=== PATIENT | female | born 1970 | race Caucasian/White ===

== ENCOUNTER 2021-06-24 13:00 | Inpatient (IN) | payer MEDICARE, OTHER ==
[~2021-06-24] VITALS: Ht 160 cm; Wt 72.6 kg
--- NOTE | 2021-06-24 13:20 | NUR ---
Patient brought in by RA 93 for abdominal pain, patient noted screaming and grasping left side of abdomen
[2021-06-24] MEDS ORDERED: L.AC1CAP6 PO (13:26)
[2021-06-24] MEDS ORDERED: BIOT5000 PO (13:26)
[2021-06-24] MEDS ORDERED: MULT-1200 PO (13:26)
[2021-06-24] MEDS ORDERED: CHOL500062 PO (13:26)
[2021-06-24] MEDS ORDERED: LACO200T2 PO (13:26)
[2021-06-24] MEDS ORDERED: CYAN100T44 PO (13:26)
[2021-06-24] MEDS ORDERED: ACET-73 PO (13:26)
[2021-06-24] MEDS ORDERED: [UNRECOGNIZED DRUG - CODE] PO (13:26)
[2021-06-24] MEDS ORDERED: CALC-1194 PO (13:26)
[2021-06-24] MEDS ORDERED: LORA10TA7 PO (13:26)
[2021-06-24] MEDS ORDERED: LEVO75TA7 PO (13:26)
[2021-06-24] MEDS ORDERED: RISP0.5T65 PO (13:26)
[2021-06-24] MEDS ORDERED: BRIV50TA PO (13:26)
[2021-06-24] MEDS ORDERED: BRIV100T PO (13:26)
[2021-06-24] MEDS ORDERED: IV NORMAL SALINE 1000 ML BAG IV ONE (13:30)
[2021-06-24] MEDS ORDERED: ONDANSETRON 4 MG/2 ML VIAL IV ONE (13:30)
[2021-06-24] MEDS ORDERED: MORPHINE SULFATE 2 MG/1 ML DISP.SYRIN IV ONE (13:30)
[2021-06-24] MEDS ORDERED: MORPHINE SULFATE 4 MG/1 ML DISP.SYRIN ONE (13:32)
[2021-06-24] MEDS ORDERED: ONDANSETRON 4 MG/2 ML VIAL ONE (13:32)
[2021-06-24 13:34] LABS: *BILIRUBIN,URIN NEGATIVE (NEGATIVE); *BLOOD, URINE 1+ (NEGATIVE); *CLARITY,URINE SLIGHTLY CLOUDY (CLEAR); *COLOR,URINE LIGHT YELLOW (YELLOW); *KETONES,URINE NEGATIVE (NEGATIVE); *UROBILINOGEN,URINE 0.2 E.U./dl (NORMAL); LEUKOCYTE ESTERASE ,URINE 3+ (NEGATIVE); NITRITE, URINE POSITIVE (NEGATIVE); UGLUCOSE NEGATIVE (NEGATIVE)
[2021-06-24 13:34] LABS: HEMATOCRIT 38.3 % (31.2-41.9); MEAN CORPUSCULAR HEMOGLOBIN 29.9 uug (24.7-32.8); MEAN CORPUSCULAR VOLUME 90.1 fL (75.5-95.3); PLATELET COUNT (AUTO) 367 K/uL (179-408)
[2021-06-24 13:39] LABS: CARBON DIOXIDE 26 mmol/L (21-32); CHLORIDE 101 mmol/L (98-107); GLUCOSE 116 mg/dL (74-106); POTASSIUM 4.3 mmol/L (3.5-5.1); UREA NITROGEN, BLOOD 10 mg/dL (7-18)
[2021-06-24] MEDS ORDERED: HYDROMORPHONE 1 MG/1 ML DISP.SYRIN ONE (13:40)
[2021-06-24 13:45] LABS: ALANINE AMINOTRANSFERASE 29 U/L (14-59); ALKALINE PHOSPHATASE 145 U/L (50-136); ASPARTATE AMINOTRANSFERASE 21 U/L (15-37); BILIRUBIN,DIRECT 0.1 mg/dL (0.0-0.2); BILIRUBIN,TOTAL 0.4 mg/dL (0.2-1.0); LIPASE 72 U/L (73-393); TOTAL PROTEIN, SERUM 8.6 g/dL (6.4-8.2)
[2021-06-24] MEDS ORDERED: HYDROMORPHONE 1 MG/1 ML DISP.SYRIN IV ONE (13:45)
--- NOTE | 2021-06-24 13:51 | NUR ---
Patient is in CT scan@this time. Patient will go to room 4A from room 2A after CT scan per MD & cupola charger insulation Sepi.
--- NOTE | 2021-06-24 14:09 | NUR ---
1st contact with patient: asleep, arousable by voice by opening her eyes, denies pains@the moment. promotional representative shows sinus tachycardia, with tachypnea, respratory rate=24-28/min, spO2=80's room air. Oxygen supplement started to titrate spO2>92%. IV fluids started as well.
--- NOTE | 2021-06-24 14:30 | NUR ---
MD was notified of current vital signs. Head of sofi was elevated to assist with better respiration. Comfort and safety measures initiated and she is being monitored closely.
[2021-06-24 17:41] LABS: BACTERIA,URINE MANY /HPF (NONE SEEN); SQUAMOUS EPITHELIAL CELL,UR FEW /HPF (NONE SEEN); WBC,URINE 20-50 /HPF (0-3)
[2021-06-24] MEDS ORDERED: ONDANSETRON 4 MG/2 ML VIAL IV PRN (17:45)
[2021-06-24] MEDS ORDERED: Z GUARD REMEDY PASTE 57 GM TUBE TOP PRN (17:45)
[2021-06-24] MEDS ORDERED: CEFTRIAXONE 1 G in IV DEXTROSE 5% 50 ML IV SCH (17:45)
[2021-06-24] MEDS ORDERED: MAGNESIUM HYDROXIDE 30 ML LIQUID UDC PO PRN (17:45)
[2021-06-24] MEDS ORDERED: ACETAMINOPHEN ES 500 MG TABLET PO PRN (17:45)
[2021-06-24] MEDS ORDERED: CEFTRIAXONE /D5W 50ML IVPB **ER PYXIS IV ONE (17:59)
--- NOTE | 2021-06-24 18:26 | NUR ---
Blanca-anal care and new bed sheets & gown on. Patient was assisted to bedpan.
[2021-06-24] MEDS ORDERED: CEFTRIAXONE 1 G in IV DEXTROSE 5% 50 ML IV ONE (19:00)
--- NOTE | 2021-06-24 19:01 | NUR ---
Darrin kay in [facility] - 06/24/21 at 1902 by HERNAN Hands off report given to leigh ann Mckeon for accepting med-surg nurse & available bed
--- NOTE | 2021-06-24 19:02 | NUR ---
Hands off report to FERMIN Hair. Patient is waiting for accepting med-surgical nurse and available bed.
--- NOTE | 2021-06-24 19:17 | NUR ---
*Rocephin IV given @3635
[2021-06-24] MEDS ORDERED: BRIVARACETAM 100 MG PO SCH (21:00)
[2021-06-24] MEDS ORDERED: ACETAMINOPHEN ES 500 MG TABLET ONE (22:06)
[2021-06-24] MEDS ORDERED: KETOROLAC TROMETHAMINE 15 MG INJ IVP ONE (22:15)
[2021-06-24] MEDS ORDERED: KETOROLAC TROMETHAMINE 15 MG INJ ONE (22:21)
--- NOTE | 2021-06-25 02:03 | NUR ---
Pt. admitted to m/s , under care of maría Virk N.P. Belongs List completed. Report given to FERMIN Arreola
--- NOTE | 2021-06-25 03:20 | NUR ---
RECEIVED PT AWAKE, ALERT AND ORIENTEDX2. PT IN NO ACUTE DISTRESS. UNDER EDUARDA LINDER MANUFACTURING CHIEF ENGINEER. DX: UTI. BELONGING LIST DONE. ALF ASSESSMENT DONE. SAFETY AND COMFORT PROVIDED.ADMISSION PROCESS AND CARE PLAN INITIATED. WILL CONTINUE TO MONITOR.
[2021-06-25] MEDS ORDERED: CEFTRIAXONE 1 G in IV DEXTROSE 5% 50 ML IV SCH (03:29)
[2021-06-25 03:31] VITALS: BP 114/60
[2021-06-25] MEDS: IV NS 1000 ML 1,000 ML IV PRN ×2 (04:36→17:59)
[2021-06-25] MEDS: KETOROLAC TROMETHAMINE 15 MG INJ IVP PRN (05:43)
[2021-06-25] MEDS: LEVOTHYROXINE SODIUM 75 MCG TABLET PO SCH (06:07)
--- NOTE | 2021-06-25 06:16 | NUR ---
PT GIVEN TORADOL PRN FOR ABDOMINAL PAIN. PT TOLERATED IT WELL. PRESCRIBED MEDICATION GIVEN AND PT TOLERATED IT WELL. SAFETY AND COMFORT PROVIDED. WILL ENDORSE TO INCOMING NURSE FOR CONTINUITY OF CARE.
--- NOTE | 2021-06-25 07:30 | NUR ---
Patient received in bed with eyes closed, but easily arousable. Alert and oriented to self, no c/o pain or discomforts at this time. Patient on 2L O2 via NC with no SOB or difficulties breathing. No acute distress noted at this time. Left hand IV intact running IVF as ordered. Personal belongings and call light within easy reach. Will continue to monitor.
[2021-06-25 08:21] VITALS: BP 93/55
[2021-06-25] MEDS: CULTURELLE CAPSULE PO SCH ×2 (08:26→20:07)
[2021-06-25] MEDS: risperiDONE 0.5 MG TABLET PO SCH ×2 (08:26→16:05)
[2021-06-25] MEDS: CALCIUM CITRA-VITAMIN D 315 MG-250 UNITS TABLET PO SCH (08:26)
[2021-06-25] MEDS: MULTIVITAMINS,THERAPEUTIC TABLET PO SCH (08:26)
[2021-06-25] MEDS: LACOSAMIDE 50 MG TABLET PO SCH ×2 (08:27→20:07)
[2021-06-25] MEDS: ASCORBIC ACID 500 MG TABLET PO SCH (08:27)
[2021-06-25] MEDS: CYANOCOBALAMIN 1,000 MCG TABLET PO SCH (08:37)
[2021-06-25] MEDS ORDERED: CYANOCOBALAMIN 100 MCG TABLET PO SCH (09:00)
[2021-06-25] MEDS ORDERED: BRIVARACETAM 50 MG PO SCH (09:00)
[2021-06-25 09:05] LABS: HEMATOCRIT 34.4 % (31.2-41.9); MEAN CORPUSCULAR VOLUME 91.2 fL (75.5-95.3); PLATELET COUNT (AUTO) 348 K/uL (179-408)
[2021-06-25 09:11] LABS: POTASSIUM 3.6 mmol/L (3.5-5.1)
[2021-06-25 09:18] LABS: PHOSPHOROUS 3.5 mg/dL (2.5-4.9)
--- NOTE | 2021-06-25 11:00 | NUR ---
As per pharmacy request, contacted patient's mother Sindi to see if she could bring home med Briviact. According to patient's mother, she is unable to find any transportation and therefore is unable to bring medication. Pharmacy and MD informed and aware.
[2021-06-25 11:21] VITALS: BP_SYST 91; BP_SYST 92; BP_DIAS 42; BP_DIAS 53
[2021-06-25] MEDS: levETIRAcetam 500 MG TABLET PO SCH ×2 (12:47→20:07)
[2021-06-25] MEDS ORDERED: MAGNESIUM HYDROXIDE 30 ML LIQUID UDC PO PRN (14:30)
[2021-06-25 15:17] VITALS: BP 116/63
--- NOTE | 2021-06-25 19:30 | NUR ---
RECEIVE PT AWAKE, ALERT AND ORIENTEDX3. PT IN NO ACUTE DISTRESS. IV INTACT. PT ON 2L NASAL CANNULA. SAFETY AND COMFORT PROVIDED. WILL CONTINUE TO MONITOR.
[2021-06-25 20:00] VITALS: BP 117/65
[2021-06-25] MEDS: CEFTRIAXONE 1 G in IV DEXTROSE 5% 50 ML IV SCH (20:07)
[2021-06-26] MEDS: KETOROLAC TROMETHAMINE 15 MG INJ IVP PRN (00:34)
[2021-06-26 04:00] VITALS: BP 102/55
--- NOTE | 2021-06-26 05:56 | NUR ---
PT SLEPT INTERMITTENTLY. PT IN NO ACUTE DISTRESS. PRESCRIBED MEDICATION GIVEN AND PT TOLERATED IT WELL. TORADOL INJ 15MG PRN GIVEN AT 0034HFOR PAIN.PT TOLERATED IT WELL. AFTER AN HOUR PT STATED ITS NOT PAINFUL ANYMORE. PT ON 2L NASAL CANNULA. IV INTACT. SAFETY AND COMFORT PROVIDED.ALL NEEDS ARE MET. WILL ENDORSE TO INCOMING NURSE FOR CONTINUITY OF CARE.
[2021-06-26] MEDS: LEVOTHYROXINE SODIUM 75 MCG TABLET PO SCH ×2 (06:12→06:13)
--- NOTE | 2021-06-26 06:14 | NUR ---
PT REFUSED HER SYNTHROID MEDICATION. WILL ENDORSE TO INCOMING NURSE. PT STABLE.
--- NOTE | 2021-06-26 06:14 | NUR ---
PT REFUSED HER MEDICATION.
[2021-06-26] MEDS: IV NS 1000 ML 1,000 ML IV PRN (06:26)
--- NOTE | 2021-06-26 07:30 | NUR ---
Patient received in bed, alert and oriented x1-2. No c/o pain or discomforts at this time. Patient on 2L O2 via NC with no SOB or difficulties breathing. No acute distress noted at this time. Left hand IV intact running IVF as ordered. Personal belongings and call light within easy reach. Will continue to monitor.
[2021-06-26 07:51] LABS: HEMATOCRIT 32.2 % (31.2-41.9); MEAN CORPUSCULAR HEMOGLOBIN 30.2 uug (24.7-32.8); MEAN CORPUSCULAR VOLUME 91.7 fL (75.5-95.3); PLATELET COUNT (AUTO) 374 K/uL (179-408)
[2021-06-26 08:05] LABS: POTASSIUM 3.6 mmol/L (3.5-5.1)
[2021-06-26] MEDS: MULTIVITAMINS,THERAPEUTIC TABLET PO SCH (08:43)
[2021-06-26] MEDS: risperiDONE 0.5 MG TABLET PO SCH ×2 (08:43→16:42)
[2021-06-26] MEDS: CALCIUM CITRA-VITAMIN D 315 MG-250 UNITS TABLET PO SCH (08:44)
[2021-06-26] MEDS: ASCORBIC ACID 500 MG TABLET PO SCH (08:44)
[2021-06-26] MEDS: CYANOCOBALAMIN 1,000 MCG TABLET PO SCH (08:44)
[2021-06-26] MEDS: levETIRAcetam 500 MG TABLET PO SCH ×2 (08:44→20:12)
[2021-06-26] MEDS: LACOSAMIDE 50 MG TABLET PO SCH ×2 (08:44→20:12)
[2021-06-26] MEDS: CULTURELLE CAPSULE PO SCH ×2 (08:44→20:12)
[2021-06-26 12:00] VITALS: BP 106/61
[2021-06-26 16:00] VITALS: BP 126/70
[2021-06-26] MEDS: IV 1/2NS 1000 ML 1,000 ML IV PRN (16:46)
[2021-06-26] MEDS: ACETAMINOPHEN 325 MG TABLET PO PRN (16:54)
[2021-06-26 20:00] VITALS: BP 107/69
[2021-06-26] MEDS: CEFTRIAXONE 1 G in IV DEXTROSE 5% 50 ML IV SCH (20:13)
[2021-06-27 04:00] VITALS: BP 138/69
--- NOTE | 2021-06-27 05:30 | NUR ---
Pt slept intermittently throughout the night. Denies pain or SOB. Pt able to ambulate with assistance to restroom. IV site intact, running ordered fluids. Safety and comfort provided. No other issues or concerns at this time, will endorse to day shift.
[2021-06-27] MEDS: LEVOTHYROXINE SODIUM 75 MCG TABLET PO SCH (06:13)
[2021-06-27] MEDS: IV 1/2NS 1000 ML 1,000 ML IV PRN ×2 (06:16→17:53)
[2021-06-27 07:04] LABS: CREATININE 0.9 mg/dL (0.6-1.3); POTASSIUM 3.6 mmol/L (3.5-5.1)
--- NOTE | 2021-06-27 07:30 | NUR ---
Patient received in bed, alert and oriented x1-2. No c/o pain or discomforts at this time. Patient on 1L O2 via NC with no SOB or difficulties breathing. No acute distress noted at this time. Left hand IV intact running IVF as ordered. Personal belongings and call light within easy reach. Will continue to monitor.
[2021-06-27] MEDS: risperiDONE 0.5 MG TABLET PO SCH ×2 (08:18→16:25)
[2021-06-27] MEDS: CALCIUM CITRA-VITAMIN D 315 MG-250 UNITS TABLET PO SCH (08:18)
[2021-06-27] MEDS: CULTURELLE CAPSULE PO SCH ×2 (08:18→20:46)
[2021-06-27] MEDS: levETIRAcetam 500 MG TABLET PO SCH ×2 (08:19→20:46)
[2021-06-27] MEDS: LACOSAMIDE 50 MG TABLET PO SCH ×2 (08:19→20:46)
[2021-06-27] MEDS: MULTIVITAMINS,THERAPEUTIC TABLET PO SCH (08:19)
[2021-06-27] MEDS: ASCORBIC ACID 500 MG TABLET PO SCH (08:20)
[2021-06-27] MEDS: CYANOCOBALAMIN 1,000 MCG TABLET PO SCH (08:20)
[2021-06-27 08:22] VITALS: BP 122/60
[2021-06-27 10:14] LABS: HEMATOCRIT 36.7 % (31.2-41.9); MEAN CORPUSCULAR HEMOGLOBIN 29.9 uug (24.7-32.8); MEAN CORPUSCULAR VOLUME 95.2 fL (75.5-95.3); PLATELET COUNT (AUTO) 351 K/uL (179-408)
[2021-06-27 11:31] VITALS: BP 138/75
[2021-06-27 14:45] VITALS: BP 102/54
[2021-06-27] MEDS: ACETAMINOPHEN 325 MG TABLET PO PRN (16:25)
[2021-06-27] MEDS ORDERED: levoFLOXacin 500 MG/D5W 500 MG in PREMIXED 1 EACH IV SCH (18:00)
[2021-06-27 20:15] VITALS: BP 91/56
[2021-06-28 05:10] VITALS: BP 99/52
--- NOTE | 2021-06-28 05:51 | NUR ---
Pt slept throughout the night. Denies pain. IV site infiltrated, new IV placed. Tolerated well. Upon morning vitals, patient's oxygen saturation was 82%. Pt was placed in high fowlers and non rebreather at 10L. Now sating at 91-93%. Nico Kramer HISTORIOGRAPHY TEACHER notified with orders for stat chest xray. Otherwise, no acute distress noted. Will endorse to day shift.
[2021-06-28] MEDS: LEVOTHYROXINE SODIUM 75 MCG TABLET PO SCH (06:22)
[2021-06-28 07:47] LABS: POTASSIUM 3.8 mmol/L (3.5-5.1)
[2021-06-28 08:16] LABS: HEMATOCRIT 36.6 % (31.2-41.9); MEAN CORPUSCULAR HEMOGLOBIN 30.1 uug (24.7-32.8); MEAN CORPUSCULAR VOLUME 92.8 fL (75.5-95.3); PLATELET COUNT (AUTO) 333 K/uL (179-408)
--- NOTE | 2021-06-28 08:40 | NUR ---
PT REFUSES ABG DRAW. PT IS AGITATED. EXPLAINED THE PROCEDURE AND REASON FOR IT; PT NOT COMPLIANT AND PULLS AWAY WHEN ATTEMPTING TO CHECK PULSE. ATTEMPTS TO TAKE NONREBREATHER OFF. RN MADE AWARE.
[2021-06-28] MEDS: risperiDONE 0.5 MG TABLET PO SCH ×2 (09:11→16:07)
[2021-06-28] MEDS: CULTURELLE CAPSULE PO SCH ×2 (09:11→20:23)
[2021-06-28] MEDS: CYANOCOBALAMIN 1,000 MCG TABLET PO SCH (09:11)
[2021-06-28] MEDS: LACOSAMIDE 50 MG TABLET PO SCH ×2 (09:11→20:23)
[2021-06-28] MEDS: levETIRAcetam 500 MG TABLET PO SCH ×2 (09:11→20:24)
[2021-06-28] MEDS: ASCORBIC ACID 500 MG TABLET PO SCH (09:12)
[2021-06-28] MEDS: MULTIVITAMINS,THERAPEUTIC TABLET PO SCH (09:12)
[2021-06-28] MEDS: CALCIUM CITRA-VITAMIN D 315 MG-250 UNITS TABLET PO SCH (09:13)
[2021-06-28] MEDS: IV 1/2NS 1000 ML 1,000 ML IV PRN (09:55)
--- NOTE | 2021-06-28 11:00 | NUR ---
Pt pulling out her NRB mask and pt desaturates to 82% on r/a. Pt transferred to rm 101 A with 1:1 sitter to keep an eye on pt to prevent her from pulling out her oxygen. Explained to pt purpose of oxygen but pt forgetful and kept pulling her oxygen out. 1:1 for safety. Call light is within reach.
[2021-06-28 12:04] LABS: ABG BASE EXCESS 0.5 mmol/L; ABG HCO3 23.9 mmol/L; ABG PCO2 34.3 mmHg (35.0-45.0); ABG PH 7.461 (7.350-7.450); ABG PO2 72.9 mmHg (75.0-100.0); ABG SITE RIGHT RADIAL; ABG TOTAL HEMOGLOBIN 11.6 G/dL (12.0-16.0); O2Hb 93.7 % (94.0-97.0)
[2021-06-28 12:08] VITALS: BP 108/59
[2021-06-28 16:04] VITALS: BP 107/42
[2021-06-28] MEDS: PIPERACILLIN SODIUM/TAZOBACTAM 3.375 G in IV DEXTROSE 5% 50 ML IV SCH ×3 (17:30→22:11)
--- NOTE | 2021-06-28 17:46 | NUR ---
Arlen ABRAHAM saw pt awaiting blood draw that was ordered, notified of pts ABG result, and aware of cxr result.
--- NOTE | 2021-06-28 18:55 | NUR ---
Notified Arlen LINDER of D DIMER RESULT elevated 35.52 New order received for CTA chest.
[2021-06-28 20:00] VITALS: BP 118/58
[2021-06-28] MEDS: ACETAMINOPHEN 325 MG TABLET PO PRN (20:23)
[2021-06-28] MEDS ORDERED: ENOXAPARIN SODIUM 40 MG/0.4 ML DISP.SYRIN SQ SCH (21:00)
[2021-06-28] MEDS ORDERED: ENOXAPARIN SODIUM 80 MG/0.8 ML DISP.SYRIN SQ ONE (21:00)
[2021-06-28] MEDS ORDERED: PIPERACILLIN/TAZOBACTAM/D5W 50 ML IV ONE ×2 (21:44→22:47)
[2021-06-28] MEDS ORDERED: SWABABLE VALVE TRANSFER SET EA MC ONE (22:19)
[2021-06-28] MEDS ORDERED: IV NORMAL SALINE 250 ML IV ONE (22:21)
[2021-06-28] MEDS ORDERED: IOHEXOL 350 100 ML INFUS..BTL ONE (22:21)
[2021-06-29 04:00] VITALS: BP 128/69
[2021-06-29] MEDS: IV 1/2NS 1000 ML 1,000 ML IV PRN (04:29)
--- NOTE | 2021-06-29 05:24 | NUR ---
Pt slept intermittently throughout the night. Chest CTA positive for saddle PE, Nico Kramer made aware. Pt has orders for pharmacy to dose Lovenox. IV site is intact, running ordered fluids. Pt placed on Tele and is SR and ST. Denies pain at this time. Still on 4L NC satting between 90-93%. Will endorse to day shift.
[2021-06-29] MEDS: LEVOTHYROXINE SODIUM 75 MCG TABLET PO SCH (06:16)
[2021-06-29] MEDS: PIPERACILLIN SODIUM/TAZOBACTAM 3.375 G in IV DEXTROSE 5% 50 ML IV SCH (06:16)
[2021-06-29 07:26] LABS: HEMATOCRIT 34.1 % (31.2-41.9); MEAN CORPUSCULAR HEMOGLOBIN 29.7 uug (24.7-32.8); MEAN CORPUSCULAR VOLUME 90.4 fL (75.5-95.3); PLATELET COUNT (AUTO) 370 K/uL (179-408)
[2021-06-29 07:36] LABS: CREATININE 1.1 mg/dL (0.6-1.3); POTASSIUM 3.7 mmol/L (3.5-5.1)
[2021-06-29] MEDS: risperiDONE 0.5 MG TABLET PO SCH ×3 (08:40→16:05)
[2021-06-29] MEDS: ASCORBIC ACID 500 MG TABLET PO SCH (08:40)
[2021-06-29] MEDS: CYANOCOBALAMIN 1,000 MCG TABLET PO SCH (08:40)
[2021-06-29] MEDS: LACOSAMIDE 50 MG TABLET PO SCH ×2 (08:41→20:01)
[2021-06-29] MEDS: CULTURELLE CAPSULE PO SCH ×2 (08:41→20:01)
[2021-06-29] MEDS: levETIRAcetam 500 MG TABLET PO SCH ×2 (08:41→20:01)
[2021-06-29] MEDS: CALCIUM CITRA-VITAMIN D 315 MG-250 UNITS TABLET PO SCH (08:41)
[2021-06-29] MEDS: MULTIVITAMINS,THERAPEUTIC TABLET PO SCH (08:41)
[2021-06-29] MEDS ORDERED: ENOXAPARIN SODIUM 80 MG/0.8 ML DISP.SYRIN SQ ONE (09:00)
--- NOTE | 2021-06-29 09:00 | NUR ---
patient laying in bed at this time, patient is alert and oriented x1, morning oral medications given 1 at a time and tolerated fine, lovenox injection administered as well. patient had morning breakfast and tolerated well, patient noted with confusion at times, able to make some needs known, denies pain at this time. side rail up x2, call light within reach.
[2021-06-29 12:00] VITALS: BP 110/69
[2021-06-29] MEDS: CEFTRIAXONE 1 G in IV DEXTROSE 5% 50 ML IV SCH (13:40)
[2021-06-29] MEDS ORDERED: PIPERACILLIN SODIUM/TAZOBACTAM 3.375 G in IV DEXTROSE 5% 100 ML IV SCH (14:00)
--- NOTE | 2021-06-29 15:03 | NUR ---
Clarified with JARAD LERNER if pt ok to have physical therapy.
[2021-06-29 16:09] VITALS: BP 99/67
--- NOTE | 2021-06-29 19:30 | NUR ---
RECEIVED PT AWAKE, ALERT AND ORIENTEDX3. PT IN NO ACUTE DISTRESS. IV INTACT. SAFETY AND COMFORT PROVIDED. WILL CONTINUE TO MONITOR.
--- NOTE | 2021-06-29 20:00 | NUR ---
RECD PT IN BED, IN FAIR CONDITION, NEEDS ATTENDED TO,SLEPT ON AND OFF.OXYGEN INHALATION AT 3LITERS VIA NC ON.
[2021-06-29] MEDS: ENOXAPARIN SODIUM 80 MG/0.8 ML DISP.SYRIN SQ SCH (20:02)
[2021-06-29 20:03] VITALS: BP 106/52
[2021-06-30 04:03] VITALS: BP 112/71
[2021-06-30] MEDS: LEVOTHYROXINE SODIUM 75 MCG TABLET PO SCH (06:07)
--- NOTE | 2021-06-30 06:28 | NUR ---
PT SLEPT COMFORTABLY. PT IN NO ACUTE DISTRESS. PT OXYGEN SATURATION ON 3L NASAL CANNULA IS 93%. PRESCRIBED MEDICATION GIVEN AND PT TOLERATED IT WELL. SAFETY AND COMFORT PROVIDED. ALL NEEDS ARE MET. WILL ENDORSE TO INCOMING NURSE FOR CONTINUITY OF CARE.
[2021-06-30 06:35] LABS: HEMATOCRIT 34.7 % (31.2-41.9); MEAN CORPUSCULAR HEMOGLOBIN 29.9 uug (24.7-32.8); PLATELET COUNT (AUTO) 442 K/uL (179-408)
[2021-06-30 06:44] LABS: PHOSPHOROUS 4.1 mg/dL (2.5-4.9); POTASSIUM 3.8 mmol/L (3.5-5.1)
[2021-06-30] MEDS: MULTIVITAMINS,THERAPEUTIC TABLET PO SCH (08:35)
[2021-06-30] MEDS: CALCIUM CITRA-VITAMIN D 315 MG-250 UNITS TABLET PO SCH (08:35)
[2021-06-30] MEDS: LACOSAMIDE 50 MG TABLET PO SCH ×2 (08:35→21:00)
[2021-06-30] MEDS: CULTURELLE CAPSULE PO SCH ×2 (08:36→20:56)
[2021-06-30] MEDS: CYANOCOBALAMIN 1,000 MCG TABLET PO SCH (08:36)
[2021-06-30] MEDS: levETIRAcetam 500 MG TABLET PO SCH ×2 (08:36→20:56)
[2021-06-30] MEDS: ENOXAPARIN SODIUM 80 MG/0.8 ML DISP.SYRIN SQ SCH ×2 (08:37→21:05)
[2021-06-30] MEDS: risperiDONE 0.5 MG TABLET PO SCH ×3 (08:38→16:27)
[2021-06-30] MEDS: ASCORBIC ACID 500 MG TABLET PO SCH (08:38)
[2021-06-30 11:36] VITALS: BP 123/72
[2021-06-30] MEDS ORDERED: MEROPENEM 500 MG in IV NORMAL SALINE 50 ML IV SCH (13:00)
[2021-06-30] MEDS: CEFTRIAXONE 1 G in IV DEXTROSE 5% 50 ML IV SCH (13:23)
[2021-06-30 15:38] VITALS: BP 123/71
[2021-06-30] MEDS: ACETAMINOPHEN 325 MG TABLET PO PRN (16:27)
[2021-06-30] MEDS ORDERED: IV D5W 1000ML 1,000 ML IV PRN (16:45)
--- NOTE | 2021-06-30 19:00 | NUR ---
RECD PT IN BED, NO ACUTE DISTRESS NOTED.VITALS TAKEN AND RECORDED.VERY PLEASANT AND QUIET.
[2021-06-30 20:00] VITALS: BP 110/59
--- NOTE | 2021-06-30 22:00 | NUR ---
ON TELE, SINUS R, 93, DUE MEDS GIVEN KEPT DRY AND CLEAN. SLEPT AT SHORT INTERVALS, CALL LITE WI REACH.HANDLED GENTLY.
[2021-07-01] VITALS: BP 118/68
[2021-07-01 04:00] VITALS: BP 111/57
--- NOTE | 2021-07-01 04:02 | NUR ---
REPOSITIONED FOR COMFORT,AFEBRILE.NO COMPLAINTS PRESENTED. TELE READING SR,HR 86.
[2021-07-01] MEDS: LEVOTHYROXINE SODIUM 75 MCG TABLET PO SCH (06:33)
[2021-07-01 06:38] LABS: HEMATOCRIT 35.1 % (31.2-41.9); MEAN CORPUSCULAR HEMOGLOBIN 29.6 uug (24.7-32.8); MEAN CORPUSCULAR VOLUME 89.6 fL (75.5-95.3); PLATELET COUNT (AUTO) 469 K/uL (179-408)
[2021-07-01 06:57] LABS: PHOSPHOROUS 4.2 mg/dL (2.5-4.9); POTASSIUM 3.8 mmol/L (3.5-5.1)
--- NOTE | 2021-07-01 08:00 | NUR ---
RECEIVED REPORT FROM FUR DRESSING SUPERVISOR. PT ON 3 L O2 NC. NO SIGNS OF DISTRESS. SITTER AT BEDSIDE. HAS LEFT FOREARM HEPLOCK. USES DIAPER. BED LOW AND LOCKED, CALL LIGHT WITHIN REACH. WILL CONTINUE WITH PLAN OF CARE.
[2021-07-01] MEDS: MULTIVITAMINS,THERAPEUTIC TABLET PO SCH (09:36)
[2021-07-01] MEDS: risperiDONE 0.5 MG TABLET PO SCH ×3 (09:36→18:31)
[2021-07-01] MEDS: LACOSAMIDE 50 MG TABLET PO SCH ×2 (09:37→20:30)
[2021-07-01] MEDS: CYANOCOBALAMIN 1,000 MCG TABLET PO SCH (09:37)
[2021-07-01] MEDS: CALCIUM CITRA-VITAMIN D 315 MG-250 UNITS TABLET PO SCH (09:37)
[2021-07-01] MEDS: CULTURELLE CAPSULE PO SCH ×2 (09:37→20:30)
[2021-07-01] MEDS: levETIRAcetam 500 MG TABLET PO SCH ×2 (09:37→20:30)
[2021-07-01] MEDS: ASCORBIC ACID 500 MG TABLET PO SCH (09:37)
[2021-07-01] MEDS: ENOXAPARIN SODIUM 80 MG/0.8 ML DISP.SYRIN SQ SCH (09:38)
[2021-07-01 11:30] VITALS: BP 116/62
[2021-07-01] MEDS: CEFTRIAXONE 1 G in IV DEXTROSE 5% 50 ML IV SCH (14:10)
[2021-07-01 15:00] VITALS: BP 120/58
--- NOTE | 2021-07-01 15:00 | NUR ---
PT MOVED FROM 301 A TO ROOM 304. ON 3 L NC.
[2021-07-01] MEDS: RIVAROXABAN 10 MG TABLET PO SCH (18:32)
[2021-07-01 20:00] VITALS: BP 113/56
[2021-07-02] VITALS: BP 113/56
[2021-07-02 04:00] VITALS: BP 113/67
[2021-07-02] MEDS: LEVOTHYROXINE SODIUM 75 MCG TABLET PO SCH (06:04)
--- NOTE | 2021-07-02 06:24 | NUR ---
Patient slept well throughout the night..ALert x2 with periods of confusion.No acute distress noted .O2 at 3LPM via NC .Iv on left arm with IVF running at 500ml/hr.Tolerated well.NSR on tele.Compliant with medication. VSS.
[2021-07-02 06:44] LABS: HEMATOCRIT 33.7 % (31.2-41.9); MEAN CORPUSCULAR HEMOGLOBIN 29.4 uug (24.7-32.8); MEAN CORPUSCULAR VOLUME 89.4 fL (75.5-95.3); PLATELET COUNT (AUTO) 469 K/uL (179-408)
[2021-07-02 07:13] LABS: MAGNESIUM 2.4 mg/dL (1.8-2.4); PHOSPHOROUS 3.9 mg/dL (2.5-4.9); POTASSIUM 3.7 mmol/L (3.5-5.1)
--- NOTE | 2021-07-02 08:00 | NUR ---
PT IN BED RESTING, NO SIGNS OF AGITATION, PT COOPERATIVE, BED LOW AND LOCKED, CALL LIGHT WITHIN REACH. PT VOIDING VIA DIAPER. PT ON ROOM AIR, NO SIGNS FO DISTRESS, NO REPORTS OF PAIN AT THIS TIME. WILL CONTINUE TO MONITOR.
[2021-07-02] MEDS: LACOSAMIDE 50 MG TABLET PO SCH ×2 (09:03→21:16)
[2021-07-02] MEDS: CALCIUM CITRA-VITAMIN D 315 MG-250 UNITS TABLET PO SCH (09:04)
[2021-07-02] MEDS: risperiDONE 0.5 MG TABLET PO SCH ×3 (09:04→17:05)
[2021-07-02] MEDS: RIVAROXABAN 10 MG TABLET PO SCH ×2 (09:05→17:07)
[2021-07-02] MEDS: CYANOCOBALAMIN 1,000 MCG TABLET PO SCH (09:06)
[2021-07-02] MEDS: levETIRAcetam 500 MG TABLET PO SCH ×2 (09:06→21:15)
[2021-07-02] MEDS: MULTIVITAMINS,THERAPEUTIC TABLET PO SCH (09:06)
[2021-07-02] MEDS: ASCORBIC ACID 500 MG TABLET PO SCH (09:06)
[2021-07-02] MEDS: CULTURELLE CAPSULE PO SCH ×2 (09:06→21:15)
[2021-07-02 11:12] VITALS: BP 100/64
--- NOTE | 2021-07-02 13:00 | NUR ---
DC'd from Tele. will continue to monitor
[2021-07-02] MEDS: CEFTRIAXONE 1 G in IV DEXTROSE 5% 50 ML IV SCH (14:10)
[2021-07-02] MEDS ORDERED: RISP0.5T5 PO (14:26)
[2021-07-02] MEDS ORDERED: RIVA10TA PO ×2 (14:26)
[2021-07-02] MEDS ORDERED: LEVE500T9 PO (14:26)
[2021-07-02] MEDS ORDERED: CEPH500C2 PO (14:32)
[2021-07-02 15:26] VITALS: BP 106/62
[2021-07-02] MEDS: ACETAMINOPHEN 325 MG TABLET PO PRN (17:07)
--- NOTE | 2021-07-02 20:00 | NUR ---
recd pt in bed, alert/oriented x2, no acute distress noted.needs attended to,bedbound.slept intermittently.iv site on left forearm,ivf infusing well.r
[2021-07-02 20:05] VITALS: BP 110/48
--- NOTE | 2021-07-02 21:25 | NUR ---
RECEIVED PT IN STABLE CONDITION, BREATHING REGULAR VIA NC AT 3 LPM, DENIED ANY PAIN, CALL LIGHT WITHIN REACH. ALL NEEDS ARE ATTENDED AND MET.
--- NOTE | 2021-07-03 00:59 | NUR ---
vital signs taken and recorded, 97,7 98,18,93%on 3l o2via nc,127/67.resting quietly,handled gently.kept dry and comfortable.
[2021-07-03 01:00] VITALS: BP 127/67
[2021-07-03 04:41] VITALS: BP 107/61
[2021-07-03] MEDS: LEVOTHYROXINE SODIUM 75 MCG TABLET PO SCH (06:22)
--- NOTE | 2021-07-03 06:23 | NUR ---
AFEBRILE 98.4,96,18,92-93% ON O2AT 3L,107/61, NO COMPLAINTS PRESENTED,ENDORSED TO AM NURSE IN APPARENTLY FAIR CONDITION.S
[2021-07-03 06:33] LABS: HEMATOCRIT 36.3 % (31.2-41.9); MEAN CORPUSCULAR HEMOGLOBIN 28.9 uug (24.7-32.8); MEAN CORPUSCULAR VOLUME 89.8 fL (75.5-95.3); PLATELET COUNT (AUTO) 472 K/uL (179-408)
[2021-07-03 06:58] LABS: CREATININE 0.8 mg/dL (0.6-1.3); MAGNESIUM 2.6 mg/dL (1.8-2.4); PHOSPHOROUS 4.2 mg/dL (2.5-4.9)
--- NOTE | 2021-07-03 07:30 | NUR ---
Patient received alert and oriented x1-2. On 4L O2 via NC at this time with no SOB or difficulties breathing noted. No c/o pain or discomforts. No acute distress noted at this time. Educated patient on possible discharge today to [facility]. Left FA IV intact and patent with no redness or swelling noted at this time. Call light and personal belongings within easy reach. Will continue to monitor.
[2021-07-03 07:49] VITALS: BP 113/69
--- NOTE | 2021-07-03 08:50 | NUR ---
Patient ambulated with physical therapy and tolerated well. Mid-90% saturation while ambulating with 4L O2 via NC.
[2021-07-03] MEDS: risperiDONE 0.5 MG TABLET PO SCH ×2 (08:51→13:50)
[2021-07-03] MEDS: MULTIVITAMINS,THERAPEUTIC TABLET PO SCH (08:52)
[2021-07-03] MEDS: ASCORBIC ACID 500 MG TABLET PO SCH (08:52)
[2021-07-03] MEDS: CYANOCOBALAMIN 1,000 MCG TABLET PO SCH (08:52)
[2021-07-03] MEDS: levETIRAcetam 500 MG TABLET PO SCH (08:52)
[2021-07-03] MEDS: CALCIUM CITRA-VITAMIN D 315 MG-250 UNITS TABLET PO SCH (08:52)
[2021-07-03] MEDS: CULTURELLE CAPSULE PO SCH (08:52)
[2021-07-03] MEDS: RIVAROXABAN 10 MG TABLET PO SCH (09:01)
[2021-07-03] MEDS: LACOSAMIDE 50 MG TABLET PO SCH (09:01)
[2021-07-03 11:17] VITALS: BP 105/53
[2021-07-03] MEDS: ACETAMINOPHEN 325 MG TABLET PO PRN (13:50)
[2021-07-03 14:43] VITALS: BP 109/65
--- NOTE | 2021-07-03 15:56 | NUR ---
Patient discharged in satisfactory condition. Picked up via ambulance with all her personal belongings.
[2021-07-23] MEDS ORDERED: RIVAROXABAN 10 MG TABLET PO SCH (17:00)
== END 2021-07-03 16:00 | DRG 871 ==
LOC: ER 13:00 → MEDSURG3 06-25 02:48 → TELE3 06-29 00:31 → MEDSURG3 07-02 11:47
PROVIDERS: ADMIT Nurse Practitioner Acute Care; ATTEND Registered Nurse
DX: A41.9 Sepsis, unspecified organism (principal); G93.41 Metabolic encephalopathy; I26.92 Saddle embolus of pulmonary artery without acute cor pulmonale; J96.01 Acute respiratory failure with hypoxia; I21.A1 Myocardial infarction type 2; N10 Acute pyelonephritis; E87.0 Hyperosmolality and hypernatremia; J90 Pleural effusion, not elsewhere classified; E03.9 Hypothyroidism, unspecified; G40.909 Epilepsy, unspecified, not intractable, without status epilepticus; F03.90 Unspecified dementia, unspecified severity, without behavioral disturbance, psychotic disturbance, mood disturbance, and anxiety; B96.20 Unspecified Escherichia coli [E. coli] as the cause of diseases classified elsewhere; D64.9 Anemia, unspecified; E86.1 Hypovolemia; F25.9 Schizoaffective disorder, unspecified; Z20.822 Contact with and (suspected) exposure to COVID-19; Z85.841 Personal history of malignant neoplasm of brain; Z87.440 Personal history of urinary (tract) infections; R10.9 Unspecified abdominal pain; F09 Unspecified mental disorder due to known physiological condition
CPT/HCPCS: 36415; 36600; 70030-TC; 71045; 71275; 83690; 83735; 84100; 85025; 85730; 87040; 87077; 87086; 93005; 93307; 97161; A4663; A9150; G0378; J0696; J1170; J1650; J1885; J1956; J2270; J2405; J2543; J3490; J7030; J7040; J7050; J7060; J7070; Q9967